=== PATIENT | male | born 1945 | race Caucasian/White ===

== ENCOUNTER 2016-07-19 13:01 | Emergency (ER) | payer MEDICARE | END 2016-07-19 16:03 | disposition left against medical advice (07) | LOC: D.ER 13:01 | DX: S89.92XA Unspecified injury of left lower leg, initial encounter (principal); W01.0XXA Fall on same level from slipping, tripping and stumbling without subsequent striking against object, initial encounter; Y93.89 Activity, other specified; Y92.89 Other specified places as the place of occurrence of the external cause ==

== ENCOUNTER 2017-09-08 13:43 | Emergency (ER) | payer MEDICARE ==
[~2017-09-08] VITALS: Ht 185.4 cm; Wt 96.4 kg
[2017-09-08 13:59] VITALS: Ht 185.4 cm; Wt 96.4 kg
[2017-09-08] MEDS ORDERED: ATIVAN1 MG PO (14:02)
[2017-09-08] MEDS ORDERED: MOBIC7.5 MG PO (14:02)
[2017-09-08] MEDS ORDERED: AMBIEN10 MG PO (14:03)
[2017-09-08] MEDS ORDERED: MELATONIN5 MG PO (14:04)
[2017-09-08] MEDS ORDERED: ASPIRIN81 MG PO (14:04)
[2017-09-08 14:41] LABS: APPEARANCE CLEAR (CLEAR); BILIRUBIN NEGATIVE (NEGATIVE); COLOR YELLOW (YELLOW); GLUCOSE NEGATIVE (NEGATIVE); KETONE NEGATIVE (NEGATIVE); NITRITE NEGATIVE (NEGATIVE); PROTEIN NEGATIVE (NEGATIVE); SPECIFIC GRAVITY 1.015 (1.005-1.020); UROBILINOGEN NORMAL (NORMAL)
[2017-09-08 14:45] LABS: BASOPHILS 0.3 % (0-2); EOSINOPHILS 0.7 % (0-7); HEMATOCRIT 42.2 % (42.0-54.0); HEMOGLOBIN 14.3 g/dL (13.5-17.5); IMMATURE GRANULOCYTES 0.5 % (0-5); MCH 31.4 pg (26.0-34.0); MCHC 33.9 g/dL (31.0-37.0); MCV 92.5 fL (80.0-100.0); MEAN PLATELET VOLUME 9.8 fL (7.4-10.4); MONOCYTES 11.7 % (2-11); NEUTROPHILS 79.8 % (40-80); PLATELET COUNT 175 10x3/uL (130-400); RBC 4.56 10x6/uL (4.20-6.10); RDW 12.9 % (11.5-14.5); WBC 5.8 10x3/uL (4.8-10.8)
[2017-09-08 15:01] LABS: ALBUMIN 3.8 g/dL (3.4-5.0); ANION GAP 13.2 mmol/L (8-16); BILIRUBIN - TOTAL 0.68 mg/dL (0.2-1.3); CALCIUM 8.3 mg/dL (8.5-10.1); CARBON DIOXIDE 26.9 mmol/L (21.0-32.0); CREATININE - SERUM 1.3 mg/dL (0.6-1.3); POTASSIUM - SERUM 4.1 mmol/L (3.5-5.1); PROTEIN - SERUM 6.9 g/dL (6.4-8.2)
[2017-09-08] MEDS ORDERED: LEVAQUIN750 MG PO (15:20)
[2017-09-08 15:52] VITALS: BP 142/69
== END 2017-09-08 15:53 | disposition home or self-care (01) ==
LOC: D.ER 13:43
PROVIDERS: Emergency Medicine
DX: J18.9 Pneumonia, unspecified organism (principal); R50.9 Fever, unspecified; M79.1 Myalgia; R05 Cough

== ENCOUNTER → 2017-09-26 08:25 | Outpatient (CLI) | payer MEDICARE, BC ==
[2017-09-08 13:59] VITALS: BMI 28.0
[~2017-09-26 08:25] MED LIST: AMBIEN10 MG PO; ASPIRIN81 MG PO; ATIVAN1 MG PO; LEVAQUIN750 MG PO; MELATONIN5 MG PO; MOBIC7.5 MG PO
== END | disposition home or self-care (01) ==
LOC: D.US 08:25
DX: N28.1 Cyst of kidney, acquired (principal); M54.6 Pain in thoracic spine; Z68.28 Body mass index [BMI] 28.0-28.9, adult

== ENCOUNTER 2019-09-01 10:52 | Emergency (ER) | payer MEDICARE, BC ==
[~2019-09-01] VITALS: Ht 185.4 cm; Wt 91.8 kg
[2019-09-01 11:07] VITALS: Ht 185.4 cm; Wt 91.8 kg
[2019-09-01] MEDS ORDERED: HYDROCODON-ACE1 EAC2 PO (11:12)
[2019-09-01] MEDS ORDERED: TESSALON PERLE100 MG PO (11:12)
[2019-09-01] MEDS ORDERED: PREDNISONE20 MG PO (11:13)
[2019-09-01] MEDS ORDERED: ZANAFLEX4 MG PO (11:13)
[2019-09-01] MEDS ORDERED: VIRTUSSIN PO (11:14)
[2019-09-01] MEDS ORDERED: FEXOFENADINE HC60 MG PO (11:15)
[2019-09-01] MEDS ORDERED: FLUTICASONE PRO16 GM NASAL (11:15)
[2019-09-01] MEDS ORDERED: ALBUTEROL SULF8.5 GM INH (11:15)
[2019-09-01 12:03] LABS: ANION GAP 7.6 mmol/L (8-16); CALCIUM 8.9 mg/dL (8.5-10.1); CARBON DIOXIDE 33.3 mmol/L (21.0-32.0); CREATININE - SERUM 1.3 mg/dL (0.6-1.3); POTASSIUM - SERUM 4.9 mmol/L (3.5-5.1)
[2019-09-01 12:06] LABS: HEMATOCRIT 46.8 % (42.0-54.0); HEMOGLOBIN 15.5 g/dL (13.5-17.5); LYMPHOCYTES 9.6 % (15-50); MCH 31.1 pg (26.0-34.0); MCHC 33.1 g/dL (31.0-37.0); MEAN PLATELET VOLUME 9.4 fL (7.4-10.4); NEUTROPHILS 80.6 % (40-80); RBC 4.98 10x6/uL (4.20-6.10); RDW 12.9 % (11.5-14.5); WBC 11.7 10x3/uL (4.8-10.8)
[2019-09-01 12:07] LABS: PLATELET COUNT 259 10x3/uL (130-400)
[2019-09-01 12:11] LABS: ALBUMIN 3.4 g/dL (3.4-5.0); BILIRUBIN - TOTAL 0.32 mg/dL (0.2-1.3); PROTEIN - SERUM 6.8 g/dL (6.4-8.2)
[2019-09-01 13:00] VITALS: BP 110/60
== END 2019-09-01 13:35 | disposition home or self-care (01) ==
LOC: D.ER 10:52
PROVIDERS: Family Medicine
DX: R05 Cough (principal); R68.89 Other general symptoms and signs

== ENCOUNTER → 2019-10-27 08:03 | Outpatient (CLI) | payer MEDICARE, BC ==
[2019-09-01 11:07] VITALS: BMI 26.7
[~2019-10-27 08:03] MED LIST changes: +ALBUTEROL SULF8.5 GM INH; +FEXOFENADINE HC60 MG PO; +FLUTICASONE PRO16 GM NASAL; +HYDROCODON-ACE1 EAC2 PO; +PREDNISONE20 MG PO; +TESSALON PERLE100 MG PO; +VIRTUSSIN PO; +ZANAFLEX4 MG PO
[2019-10-28 07:15] LABS: IMMUNOGLOBULIN A 154 mg/dL (61-437); IMMUNOGLOBULIN G 955 mg/dL (603-1613)
[2019-10-29 06:11] LABS: IGG SUBCLASS 1 387 mg/dL (248-810); IGG SUBCLASS 2 443 mg/dL (130-555); IGG SUBCLASS 3 98 mg/dL (15-102); IGG SUBCLASS 4 28 mg/dL (2-96); IGGS - IGG SERUM 996 mg/dL (603-1613)
[2019-10-29 15:12] LABS: IMMUNOGLOBULIN E 13 IU/mL (6-495)
== END | disposition home or self-care (01) ==
LOC: D.RT 10-16 09:00 → D.LAB 10-16 09:00 → D.CT 08:00
PROVIDERS: ATTEND Internal Medicine Pulmonary Disease
DX: R42 Dizziness and giddiness (principal); J44.9 Chronic obstructive pulmonary disease, unspecified; R05 Cough; J42 Unspecified chronic bronchitis; K21.9 Gastro-esophageal reflux disease without esophagitis